=== PATIENT | male | born 1985 | race Asian ===

== ENCOUNTER 2016-08-23 17:28 | Emergency (ER) | payer OTHER ==
[~2016-08-23] VITALS: Ht 172.7 cm; Wt 97.5 kg
[~2016-08-23 17:28] MED LIST: OLANZAPINE5 M1 PO; SERT50TA PO
[2016-08-23 17:56] LABS: PLATELET COUNT 185 K/uL (142-355)
[2016-08-23 18:14] LABS: POTASSIUM 3.5 mmol/L (3.6-5.2); SODIUM 133 mmol/L (136-145)
[2016-08-23 21:25] VITALS: BP 137/89; TEMP 98.7
== END 2016-08-23 21:25 | disposition other institution (70) ==
LOC: ED 17:28
DX: R45.4 Irritability and anger (principal); R45.5 Hostility
CPT/HCPCS: 36415; 80053; 80307; 80320; 80329; 81000; 85027; 99285; G0479; J1170; J2405

== ENCOUNTER 2016-11-05 15:55 | Emergency (ER) | payer OTHER ==
[~2016-11-05] VITALS: Ht 172.7 cm; Wt 95.3 kg
[2016-11-05] MEDS ORDERED: QUET100T2 PO (16:12)
[2016-11-05] MEDS ORDERED: SERT50TA PO (16:13)
[2016-11-05 17:39] VITALS: BP 147/80; TEMP 98.7
== END 2016-11-05 17:40 | disposition home or self-care (01) ==
LOC: ED 15:55
DX: F32.89 Other specified depressive episodes (principal)
CPT/HCPCS: 99282

== ENCOUNTER 2017-01-05 12:33 | Outpatient (CLI) | payer OTHER ==
[~2017-01-05 12:33] MED LIST changes: +QUET100T2 PO
[2017-01-05 14:00] LABS: PLATELET COUNT 195 K/uL (142-355)
[2017-01-05 14:06] LABS: POTASSIUM 3.9 mmol/L (3.6-5.2); SODIUM 141 mmol/L (136-145)
== END 2017-01-05 13:35 | disposition home or self-care (01) ==
LOC: LABW 12:33
PROVIDERS: Nurse Practitioner Family
DX: Z04.6 Encounter for general psychiatric examination, requested by authority (principal); R79.89 Other specified abnormal findings of blood chemistry
CPT/HCPCS: 80053; 80307; 80320; 80329; 81000; 85027; G0479